=== PATIENT | female | born 1935 | race Caucasian/White ===

== ENCOUNTER 2020-04-24 10:03 | Emergency (ER) | payer MEDICARE, OTHER ==
[~2020-04-24] VITALS: Ht 149.9 cm; Wt 54.0 kg
[2020-04-24 10:43] LABS: BASOPHIL % 0.5 % (0.2-1.3); PLATELET COUNT 188 x10^3mcL (179-408)
[2020-04-24 10:50] LABS: RED CELL DISTRIBUTION WIDTH 14.8 % (12.3-17.7)
[2020-04-24 11:03] LABS: CALCIUM 8.6 mg/dL (8.5-10.1); CHLORIDE SERUM 101 mmol/L (98-107); CREATININE SERUM 0.8 mg/dL (0.6-1.0); GLUCOSE SERUM 109 mg/dL (74-106); POTASSIUM SERUM 3.9 mmol/L (3.5-5.1); SODIUM SERUM 136 mmol/L (136-145)
[2020-04-24 11:11] LABS: T3 TOTAL 0.96 ng/mL
[2020-04-24 11:14] LABS: UA SPECIFIC GRAVITY 1.015 (1.005-1.035); microscopic required? YES; urine erythrocyte NEGATIVE (NEGATIVE)
[2020-04-24 11:14] LABS: ALBUMIN 3.6 g/dL (3.4-5.0); ALKALINE PHOSPHATASE 65 U/L (46-116); ALT/SGPT 37 U/L (14-59); AST/SGOT 21 U/L (15-37); BILIRUBIN TOTAL 0.55 mg/dL (0.20-1.00); C REACTIVE PROTEIN 6.4 mg/dL (<=0.9); TOTAL PROTEIN, SERUM 7.7 g/dL (6.4-8.2)
[2020-04-24 11:15] LABS: FREE T4 1.43 ng/dL (0.76-1.46); FREE THYROXINE INDEX 3.5 ug/dL (1.4-4.5); T4(THYROXINE) 10.3 ug/dL (4.7-13.3)
[2020-04-24 11:21] LABS: ERYTHROCYTE SED RATE 69 mm/hr (0-30)
[2020-04-24 11:50] LABS: CK-MB < 0.5 ng/mL (0-3.6); CREATINE KINASE 53 U/L (26-192)
[2020-04-24 17:38] VITALS: BP 144/83
== END 2020-04-24 17:38 | disposition home or self-care (01) ==
LOC: ED 10:03
PROVIDERS: Specialist
DX: U07.1 COVID-19 (principal); I10 Essential (primary) hypertension
CPT/HCPCS: 36600; 84439; M0239; Q0239; U0003